=== PATIENT | female | born 1990 | race Caucasian/White ===

== ENCOUNTER 2021-07-12 19:08 | Emergency (ER) | payer OTHER, SELFPAY ==
--- NOTE | 2021-07-12 19:19 | ED_ITS ---
HPI - Overdose General Chief Complaint: Overdose Stated Complaint: OD Time Seen by Provider: 07/12/21 19:11 Source: patient and EMS Mode of arrival: EMS Limitations: no limitations History of Present Illness HPI Narrative: Patient comes emergency room complaining of a heroin overdose. Patient was admitted visit doing an intake. Confirmed of people patient used heroin, snorted, overdose. Patient was given twice 4 mg of intranasal Narcan. Patient admits to using 5 bags of her wane throughout the day today. Otherwise patient has no complaints. Patient denies suicidal/homicidal ideation Related Data Allergies Allergy/AdvReac Type Severity Reaction Status Date / Time No Known Allergies Allergy Verified 07/12/21 19:21 Review of Systems Review of Systems: Constitutional : No Weight loss, No Fever, No Chills, No Night Sweats, No Fatigue, No Malaise ENT/Mouth : No Hearing loss, No Ear Pain, No Nasal Congestion, No Sinus Pain, No Hoarseness, No sore throat, No Rhinorrhea, No Swallowing Difficulty Eyes: No Eye Pain, No Swelling, No Redness, No Foreign Body, No Discharge, No Vision Changes Cardiovascular : No Chest Pain, No SOB, No Dyspnea on Exertion, No Orthopnea, No Edema, No Palpitations Respiratory : No Cough, No Sputum, No Wheezing, No Smoke Exposure, No Dyspnea Gastrointestinal : No Nausea, No Vomiting, No Diarrhea, No Constipation, No abdominal Pain, No Hematochezia, No Melena Genitourinary : no irregular bleeding, No Dysuria, No Urinary Frequency, No Hematuria, No Urinary Incontinence, No Urgency, No Flank Pain, No Urinary Flow Changes, No Hesitancy Musculoskeletal : No joint pain, No Myalgias, No Joint Swelling Skin : No Skin Lesions, No rash Neuro : No Weakness, No Numbness, No Paresthesias, No Loss of Consciousness, No Dizziness, No Headache Psych : No Anxiety/Panic, No Depression, No SI/HI/AH/VH, admits to heroin abuse Heme/Lymph: No Bruising, No Bleeding,No Lymphadenopathy Endocrine : No Polyuria, No Polydipsia, No Temperature Intolerance [facility] Past Medical History Medical History (Updated 07/12/21 @ 21:36 by Connie Parish MD) Substance abuse Physical Exam Vital Signs: Vital Signs: Last Vital Signs Temp 97.8 F 07/12/21 19:26 Pulse 64 07/12/21 20:24 Resp 14 07/12/21 20:24 BP 107/59 L 07/12/21 20:24 Pulse Ox 97 07/12/21 20:24 Body Mass Index 27.3 Const: Other: Appearance: Alert. Oriented X2. No acute distress. Somnolent, easily arousable Eyes: Pupils equal, round and reactive to light. ENT: Pharynx normal. Neck: Normal inspection. Neck supple. No lymph nodes noted. No crepitus CVS: Normal heart rate and rhythm. Pulses normal. Normal S1 and S2 Respiratory: No respiratory distress. Breath sounds normal. No Wheezing. No rales Abdomen: Soft and nontender. No rigidity. No distention. good BS x4 Skin: Skin warm and dry. Normal skin color. Normal skin turgor. Extremities: No lower extremity edema. No lower extremity edema. No Lacerations. No Rash Neuro: Oriented X 2. No motor deficit. No sensory deficit. Moving all extermities. No slurred speech, cranial nerves 2-12 grossly intact Psych: Calm, cooperative, somnolent but easily arousable Course Course Course Narrative: Over disaster recovery specialist attempted talking to the patient. Patient is still significantly somnolent but easily arousable. Patient at this time not making sense. We will attempt again once the patient is more awake and alert. Metabolized to freedom. Sign-out given to Dr. Saenz. Anticipating home discharge with resources where the patient can call Discharge Plan Discharge Clinical Impression: Drug overdose, Substance abuse Patient Disposition: Home, Self-Care Instructions: Adult Overdose (ED) Additional Instructions: Please follow-up with your primary care physician tomorrow. If you have any worsening or new symptoms, please return to the emergency room or call 911
[2021-07-12 19:26] VITALS: BP 102/80; BP 126/66; PULSE 82; PULSE 84; RESP 17; TEMP 36.6; O2SAT 98; BMI 27.3
--- NOTE | 2021-07-12 19:39 | PC.NURSE ---
Pt alert and confused to situation and place. Pt not listening to commands, noted to get out of bed and stumbling around the room, not steady on her feet. Skin is diaphoretic to touch. Vitals stable, remains on room air. Tele monitor applied, pt pulling leads off. No IV in place.
[2021-07-12 20:24] VITALS: BP 107/59; PULSE 64; RESP 14; O2SAT 97
[2021-07-12 22:45] VITALS: BP 110/56; PULSE 54; RESP 13; O2SAT 98
--- NOTE | 2021-07-12 23:22 | HO.SUDE ---
CARE team met with pt to attempt to complete a SUDE. Pt was rousable but required several verbal prompts to maintain engagement in conversation. She reported that she had been brought to [facility] in an attempt to go to detox (no confirmed bed), however she used heroin in the bathroom at the facility and suffered from an accidental overdose, resulting in her being transported to the ED by ambulance. She received 4mg narcan prior to arrival. She reported that she uses heroin and cocaine and is currently on methadone, which she receives through the [facility] in [place]. Her last detox admission was a few months ago and she is motivated for recovery at this time. This internal communications writer attempted to call [facility] several times to inquire about anticipated availability for tomorrow however there was no response. This internal communications writer spoke with ED attending physician re: plan for pt be sent via Lyft or cab to [facility] detox first thing in the morning.
[2021-07-13] VITALS: BP 90/57; PULSE 70; RESP 19; TEMP 36.6; O2SAT 99
--- NOTE | 2021-07-13 00:12 | PC.NURSE ---
this RN to bedside, notes pt to be hypotensive on panel monitor in 70s systolic. This RN noted BP cuff to be in improper position. This RN repositioned to cuff to appropriate location and reassessed VS. While replacing cuff, pt awoke. VSS as charted, MAP of 68. Pt awake, disoriented initially, asking where she is. Pt reoriented to place and situation. Pt expresses understanding. Pt requesting PO. Ayla, primary RN made aware of VS and pt's request. Ayla provided pt with PO.
[2021-07-13 01:00] VITALS: BP 90/52; PULSE 61; RESP 12; O2SAT 98
[2021-07-13 05:38] VITALS: BP 97/52; PULSE 68; RESP 12; TEMP 36.9; O2SAT 98
--- NOTE | 2021-07-13 05:39 | PC.NURSE ---
Pt alert and oriented, calm and cooperative. Pt re-oriented to situation, pt states an understanding. Pt awake and alert making clear sentences. Pt expressing she would like to be discharged, asking if she could go back to [facility] for bed placement for Detox. Pt aware of needing to wait at this time. No IV in place. Vitals stable, remains on room air. Will continue to monitor.
--- NOTE | 2021-07-13 08:39 | MHC.CARE ---
[facility] has a detox bed available at 12 today. Patient ok with that plan, CARE or Recovery will sent her by GRICEL Buckner updated.
--- NOTE | 2021-07-13 08:53 | MHC.RECOVRN ---
Spoke with Harp[facility] regarding bed availability. So at confirms ATS bed for 2 pm. Requesting labs, RN aware.
[2021-07-13 09:24] VITALS: BP 88/50; PULSE 55; RESP 16; TEMP 36.6; O2SAT 95
[2021-07-13 09:53] LABS: Ethanol < 10 mg/dL
[2021-07-13 09:54] LABS: COVID-19 Test Negative (Negative); IDNOW Serial# 08D9AD1C
[2021-07-13 10:02] LABS: Alanine Aminotransferase 96 U/L (0-31); Albumin Level 3.6 g/dL (3.5-5.0); Alkaline Phosphatase 39 U/L (39-117); Anion Gap 10 (12-20); Aspartate Amino Transferase 62 U/L (5-31); Bilirubin Direct 0.2 mg/dL (0.0-0.5); Bilirubin Total 0.4 mg/dL (0.0-1.0); Blood Urea Nitrogen 13 mg/dL (9-16); Calcium 8.8 mg/dL (8.4-10.2); Carbon Dioxide 25 mmol/L (22-29); Chloride 107 mmol/L (96-108); Creatinine Clr Calc Pharmacy 104.9; Estimated Glomerular Filt Rate > 60; Glucose Random 88 mg/dL (60-115); Magnesium 2.2 mg/dL (1.6-2.6); Potassium 3.7 mmol/L (3.3-5.1); Sodium 138 mmol/L (135-145); Total Protein 6.3 g/dL (6.5-8.0)
--- NOTE | 2021-07-13 10:28 | MHC.RECOVSUP ---
Addendum entered by Jere Reyes 07/13/21 10:31: Pt. to be discharged to [facility] Original Note: ? Reason for consult:Recovery Support o Current location:[facility] o Identified substance use concern:Heroine - Overdose - Withdrawal - Seeking ATS (detox) - Support ? Intervention: o Community resources provided o Harm reduction discussion ? Plan: o Referral to CCC o Bed search in progress to = o Patient to follow up with [facility] after discharge ? Additional information: Pt. seeking detox, spoke to pt. about harm reduction and mat. provided community resources to detox facilities
[2021-07-13 12:09] VITALS: BP 89/54
[2021-07-13 13:10] VITALS: BP 116/72; PULSE 75; RESP 18; O2SAT 99
[2021-07-13 13:22] LABS: Basophils Percent Auto 0.5 % (0-2); Eosinophils Absolute Auto 0.2 X10*3/uL (0.0-0.4); Hematocrit 36.7 % (37.0-47.0); Hemoglobin 11.8 g/dl (12.0-16.0); Imm Gran Abs Auto 0.01 X10*3/uL (0.00-0.03); Imm Gran Pct Auto 0.2 % (0.0-0.4); Lymphocytes Absolute Auto 2.1 X10*3/uL (1.2-4.9); Lymphocytes Percent Auto 34.8 % (20-40); Mean Corpuscular HGB Conc 32.2 g/dl (31.0-35.0); Mean Corpuscular Hemoglobin 28.4 pg (27.0-33.0); Mean Corpuscular Volume 88.2 fL (80.0-98.0); Mean Platelet Volume 9.2 fL (9.4-12.3); Monocytes Absolute Auto 0.5 X10*3/uL (0.1-1.2); Monocytes Percent Auto 8.2 % (2-11); Neutrophils Absolute Auto 3.2 x10*3/uL (2.0-8.3); Neutrophils Percent Auto 53.3 % (45-73); Platelet Count 257 X10*3/uL (160-400); Red Blood Count 4.16 X10*6/uL (4.20-5.50); Red Cell Distribution Width 12.8 % (11.0-16.0)
[2021-07-13] MEDS: methADONE HCl 20 MG/2 ML ORAL.CONC 80 MG PO (14:00)
== END 2021-07-13 14:09 | disposition home or self-care (01) ==
PROVIDERS: Physician Assistant; Emergency Provider Emergency Medicine; PCP Pediatrics
DX: T40.1X1A Poisoning by heroin, accidental (unintentional), initial encounter (principal); R40.0 Somnolence; F19.10 Other psychoactive substance abuse, uncomplicated; Y92.9 Unspecified place or not applicable
CPT/HCPCS: 36415; 80048; 80076; 82077; 83735; 85025; 87635; 99285

== ENCOUNTER 2023-03-10 19:54 | Emergency (ER) | payer OTHER, SELFPAY ==
[2023-03-10 20:00] VITALS: BP 152/77; PULSE 98; RESP 18; TEMP 36.8; O2SAT 96; BMI 30.6
--- NOTE | 2023-03-10 20:01 | ED.GENADULT ---
HPI - General Adult General Chief complaint: Skin/Abscess/Foreign Body Stated complaint: both knees down are numb, soars, infected Time Seen by Provider: 03/10/23 22:04 Source: patient Mode of arrival: ambulatory Limitations: no limitations History of Present Illness HPI narrative: Patient is a 32-year-old female presenting to the emergency department with complaint of multiple sores to bilateral feet, states pain radiates up to knees. Was recently incarcerated, was released on the . States she bought new shoes and walked farther than I should have and developed blisters which then turned into open wounds. Large pustule to right lateral foot on plantar surface, wounds to medial aspects of bilateral feet as well as wounds to bilateral great toes. Denies fevers. States she has been cleaning the areas with soap and water. Difficulty ambulating related to the pain. Denies fever or other systemic symptoms. MD complaint: foot wounds Onset (ago): day(s) Location: lower extremity Radiation: proximal Severity: severe Quality: burning and aching Pain Consistency: constant Relieving factors: rest Exacerbating factors: movement Associated symptoms: denies other symptoms Treatments prior to arrival: other (soap and water) Related Data Previous Rx's Medication Instructions Recorded cephalexin 500 mg capsule 500 mg PO QID #28 caps 03/10/23 doxycycline hyclate 100 mg capsule 100 mg PO BID #14 caps 03/10/23 Allergies Allergy/AdvReac Type Severity Reaction Status Date / Time No Known Allergies Allergy Verified 03/10/23 20:05 Review of Systems Review of Systems: As per HPI. Yes all other systems are reviewed and are negative Constitutional: Constitutional: Reports as per HPI [facility] Past Medical History Medical History (Updated 03/10/23 @ 22:18 by Maile Chacon NP) Substance abuse Social History Social History Substance Use Type: Heroin Advance Directives: No Advance Directives Information Provided: No Physical Exam ED Vital Signs: Vital Signs - 24 hr 03/10/23 20:00 Temperature 98.2 F Pulse Rate 98 Respiratory Rate 18 Blood Pressure 152/77 H Pulse Oximetry 96 Oxygen Delivery Method Room Air BMI result Body Mass Index 30.6 Vital signs have been reviewed and appear to be correct. Blood pressure, mildly elevated, likely secondary to pain. Heart rate normal. Respiratory rate normal. Temperature normal. Oxygen saturation normal. Const General: cooperative, healthy appearing and no acute distress Orientation/consciousness: oriented to person, oriented to place, oriented to time and patient oriented x3 Limitations: no limitations HENMT Head: Yes normocephalic and Yes atraumatic Ears: external ears normal General nose exam: Normal external nose present Face and sinus: Yes face symmetric Mouth: oropharynx normal and moist mucous membranes Throat: Yes uvula midline Eyes Pupils: Equal, round and reactive pupils present Neck Neck: Yes normal visual inspection and Yes supple Resp Effort & Inspection: normal respiratory effort and able to speak in complete sentences Auscultation: clear to auscultation bilaterally Cardio Rate: regular rate Rhythm: regular rhythm Heart sounds: S1 normal heart sound present and S2 normal heart sound present GI Palpation (GI): Soft to palpation and nontender Auscultation: normoactive bowel sounds General: Yes no CVA tenderness Back/Spine/Pelvis Back: no CVA tenderness Skin General skin exam: elasticity normal and turgor normal Lesions: lesion noted ulcer bilateral dorsal foot size (1-2cm each), color red and tender Neuro General: oriented to person, oriented to place, oriented to time, patient oriented x3, moves all extremities, no focal motor deficits and CN's II-XI intact bilaterally Cranial nerves: Yes Equal, round and reactive pupils present Cognition (Neuro): normal cognition Extrem General: Yes full ROM, Yes no pedal edema and Yes no calf tenderness Ankle/foot/toe images: 1. erythematous scab with purulent discharge 2. erythematous scab with purulent discharge 3. erythematous scab with purulent discharge 4. erythematous scab with purulent discharge 5. erythematous scab with purulent discharge 6. erythematous scab with purulent discharge 7. bullae filled with purulent fluid Psych Mental Status: mental status grossly normal Affect: normal affect Thought process: Normal thought process present Medical Decision Making Medical Decision Making MDM Narrative: Patient is a 32-year-old female presenting to the emergency department with complaint of multiple sores to bilateral feet, states pain radiates up to knees. On exam patient is awake, A+Ox3, VS WNL, afebrile, Nontoxic appearing,normal neurological exam without focal deficits, multiple ulcers to bilateral feet, medial aspect, bilateral great toes on dorsal surface, right great toe plantar surface, lateral right foot plantar surface with mild surrounding erythema, no erythema streaking up ankles, no calor, no calf tenderness. Given reported symptoms and physical exam findings, initial differential includes cellulitis. No pain out of proportion concerning or rapid progression concerning for necrotizing fasciitis, no lymphangitic spread visible. Low concern for osteomyelitis or DVT. Labs notable for mild leukocytosis. Will discharge home on doxycycline and cephalexin and refer patient to general surgery. Instructed patient to keep areas clean and assess daily for signs of worsening infection. Instructed patient to follow up with PCP. Differential Diagnosis Differential Diagnoses: The differential diagnosis associated with the presentation includes As per MDM. Admission/Observation Consideration of admission/observation: Escalation of care including admission/observation considered Lab Data [facility] Lab Attestation statement: I reviewed the patient's lab results. As per MDM. 03/10/23 21:26 03/10/23 21:26 Labs: Lab Results 03/10/23 03/10/23 Range/Units 21:26 21:26 WBC 11.5 H (4.8-10.8) X10*3/uL RBC 4.30 (4.20-5.50) X10*6/uL Hgb 12.1 (12.0-16.0) g/dl Hct 35.8 L (37.0-47.0) % MCV 83.3 (80.0-98.0) fL MCH 28.1 (27.0-33.0) pg MCHC 33.8 (31.0-35.0) g/dl RDW 12.3 (11.0-16.0) % Plt Count 305 (160-400) X10*3/uL MPV 9.0 L (9.4-12.3) fL Immature Gran % (Auto) 0.4 (0.0-0.4) % Neut % (Auto) 69.3 (45-73) % Lymph % (Auto) 18.4 L (20-40) % [place] % (Auto) 9.5 (2-11) % Eos % (Auto) 2.0 (0-4) % Baso % (Auto) 0.4 (0-2) % Lymph # (Auto) 2.1 (1.2-4.9) X10*3/uL [place] # (Auto) 1.1 (0.1-1.2) X10*3/uL Eos # (Auto) 0.2 (0.0-0.4) X10*3/uL Baso # (Auto) 0.1 (0.0-0.2) X10*3/uL Abs Immat Gran (auto) 0.05 H (0.00-0.03) X10*3/uL Absolute Neuts (auto) 8.0 (2.0-8.3) x10*3/uL Absolute Nucleated RBC 0.000 (0.0-0.012) X10*3/uL Nucleated RBC % (auto) 0.0 (0.0-0.2) /100WBC Sodium 138 (135-145) mmol/L Potassium 3.2 L (3.3-5.1) mmol/L Chloride 96 (96-108) mmol/L Carbon Dioxide 25 (22-29) mmol/L Anion Gap 20 (12-20) BUN 9 (9-16) mg/dL Creatinine 0.76 (0.5-1.4) mg/dL Estim Creat Clear Calc 114.3 Estimated GFR > 60 Random Glucose 123 H (60-115) mg/dL Calcium 9.3 (8.4-10.2) mg/dL External Record Review External record reviewed: Inpatient record, Office record and Outpatient record Prescription Management I considered prescription management with: Antibiotic ( Doxycycline cephalexin) Discharge Plan Discharge Clinical Impression: Cellulitis of both feet Patient Disposition: Home, Self-Care Instructions: Cellulitis (DC) Additional Instructions: You have been evaluated in the emergency department today for skin infection, also known as cellulitis. Please take your prescribed antibiotics as directed for the full course of the medication. You should also soak your feet in warm water with Epsom salt several times daily. You can use Tylenol or ibuprofen per package instructions every 6 hours as needed for pain. If necessary, you can alternate these medications so that you can take one medication every 3 hours. For instance, at noon take ibuprofen, then at 3:00 p.m. take Tylenol, then at 6:00 p.m. take ibuprofen. You are being referred to general surgery if the blister to your right foot does not resolve with the prescribed antibiotics. Please schedule an appointment for follow-up with your primary care physician as soon as possible. Return to the emergency department if you experience recurrent vomiting, fevers greater than 100.4? F, increasing area of redness, warmth around the area, foul-smelling discharge from the area, increased tenderness around the area, or any other concerning symptoms. Prescriptions: New doxycycline hyclate 100 mg capsule 100 mg PO BID Qty: 14 0RF cephalexin 500 mg capsule 500 mg PO QID Qty: 28 0RF Referrals: [facility] General Surgeons [Provider Group]
[2023-03-10 21:43] LABS: MANUAL DIFF FLAG NO
[2023-03-10 21:44] LABS: Basophils Absolute Auto 0.1 X10*3/uL (0.0-0.2); Basophils Percent Auto 0.4 % (0-2); Eosinophils Absolute Auto 0.2 X10*3/uL (0.0-0.4); Hematocrit 35.8 % (37.0-47.0); Hemoglobin 12.1 g/dl (12.0-16.0); Imm Gran Abs Auto 0.05 X10*3/uL (0.00-0.03); Imm Gran Pct Auto 0.4 % (0.0-0.4); Lymphocytes Absolute Auto 2.1 X10*3/uL (1.2-4.9); Lymphocytes Percent Auto 18.4 % (20-40); Mean Corpuscular HGB Conc 33.8 g/dl (31.0-35.0); Mean Corpuscular Hemoglobin 28.1 pg (27.0-33.0); Mean Corpuscular Volume 83.3 fL (80.0-98.0); Monocytes Absolute Auto 1.1 X10*3/uL (0.1-1.2); Monocytes Percent Auto 9.5 % (2-11); Neutrophils Percent Auto 69.3 % (45-73); Platelet Count 305 X10*3/uL (160-400); Red Cell Distribution Width 12.3 % (11.0-16.0); White Blood Count 11.5 X10*3/uL (4.8-10.8)
[2023-03-10 22:03] LABS: Anion Gap 20 (12-20); Blood Urea Nitrogen 9 mg/dL (9-16); Calcium 9.3 mg/dL (8.4-10.2); Carbon Dioxide 25 mmol/L (22-29); Chloride 96 mmol/L (96-108); Creatinine Clr Calc Pharmacy 114.3; Estimated Glomerular Filt Rate > 60; Glucose Random 123 mg/dL (60-115); Potassium 3.2 mmol/L (3.3-5.1); Sodium 138 mmol/L (135-145)
== END 2023-03-10 22:30 | disposition home or self-care (01) ==
PROVIDERS: Registered Nurse Emergency; Emergency Provider Emergency Medicine; PCP Pediatrics
DX: L03.115 Cellulitis of right lower limb (principal); L03.116 Cellulitis of left lower limb; Z79.899 Other long term (current) drug therapy
CPT/HCPCS: 36415; 80048; 85025; 99282; 99283

== ENCOUNTER 2024-07-24 17:57 | Outpatient (REF) | payer OTHER, SELFPAY | END 2024-07-24 17:58 | disposition home or self-care (01) | LOC: HO.MRI 17:57 | PROVIDERS: PCP Family Medicine; Visit Provider Psychiatry & Neurology Neurology | DX: G93.40 Encephalopathy, unspecified (principal) | CPT/HCPCS: 70551 ==